=== PATIENT | female | born 1995 | race Caucasian/White ===

== ENCOUNTER 2022-03-26 18:04 | Inpatient (IN) | payer MEDICAID, OTHER ==
[~2022-03-26] VITALS: Ht 170.2 cm; Wt 68.5 kg
[~2022-03-26 18:04] MED LIST: NO MEDS
[2022-03-26] MEDS ORDERED: HYDR-3831 PO (19:05)
[2022-03-26] MEDS ORDERED: TRAZ-252 PO (19:05)
[2022-03-26] MEDS ORDERED: BUSP10TA23 PO (19:05)
[2022-03-26 19:17] LABS: BASOPHILS % (AUTO) 0.6 % (0.0-2.0); EOSINOPHILS % (AUTO) 0.2 % (1.0-6.0); HEMATOCRIT 40.5 % (36-46); HEMOGLOBIN 13.6 g/dL (12.0-16.0); LYMPHOCYTES # (AUTO) 1.7 K/uL (1.0-4.8); LYMPHOCYTES % (AUTO) 25.2 % (22.0-44.0); MEAN CORPUSCULAR HEMOGLOBIN 29.5 pg (26.0-34.0); MEAN CORPUSCULAR HGB CONC 33.5 G/dL (31.0-37.0); MEAN CORPUSCULAR VOLUME 88 fL (80-100); MONOCYTES # (AUTO) 0.3 K/uL (0.1-1.0); MONOCYTES % (AUTO) 4.6 % (2.0-9.0); NEUTROPHILS # (AUTO) 4.6 K/uL (1.8-7.7); NEUTROPHILS % (AUTO) 69.4 % (40.0-70.0); PLATELET COUNT (AUTO) 188 K/uL (150-450); RED CELL DISTRIBUTION WIDTH 12.2 % (11.5-14.5)
[2022-03-26 19:33] LABS: ANION GAP 9 mmol/L (8-16); CALCIUM, TOTAL 9.8 mg/dL (8.8-10.5); CARBON DIOXIDE 30 mmol/L (22-29); CHLORIDE 105 mmol/L (98-107); GLOMERULAR FILTR. RATE CALC > 60 mL/min (>60); GLUCOSE,RANDOM 95 mg/dL (70-110); SODIUM SERUM 144 mmol/L (136-145); UREA NITROGEN, BLOOD 8 mg/dL (7-18)
[2022-03-26 19:38] LABS: ALANINE AMINOTRANSFERASE 17 U/L (12-78); ALBUMIN 4.5 g/dL (3.4-5.0); ALKALINE PHOSPHATASE 56 U/L (46-116); ASPARTATE AMINOTRANSFERASE 15 U/L (15-37); BILIRUBIN,TOTAL 0.3 mg/dL (0.1-1.0); TOTAL PROTEIN, SERUM 8.1 g/dL (6.4-8.2)
[2022-03-26 21:07] LABS: COVID AG,FIA SOURCE NASAL SWAB
[2022-03-26 21:19] LABS: AMPHET/METH SCREEN,URINE NEGATIVE (NEGATIVE); BARBITURATE SCREEN, URINE NEGATIVE (NEGATIVE); BENZODIAZEPINES SCREEN,URINE NEGATIVE (NEGATIVE); CANNABINOID SCREEN,URINE POSITIVE (NEGATIVE); COCAINE SCREEN,URINE NEGATIVE (NEGATIVE); METHADONE SCREEN, URINE NEGATIVE (NEGATIVE); OPIATE SCREEN,URINE NEGATIVE (NEGATIVE); PHENCYCLIDINE SCREEN,URINE NEGATIVE (NEGATIVE)
[2022-03-26] MEDS ORDERED: LORazepam 1 MG TABLET PO ONE (22:30)
[2022-03-26] MEDS ORDERED: LORazepam 2 MG TABLET PO PRN (22:30)
[2022-03-26] MEDS ORDERED: HALOPERIDOL 5 MG TABLET PO PRN (22:30)
[2022-03-26] MEDS ORDERED: ZOLPIDEM TARTRATE 10 MG TABLET PO PRN (22:30)
[2022-03-26 22:34] LABS: APPEARANCE,URINE CLEAR (CLEAR); BILIRUBIN,URINE NEGATIVE (NEGATIVE); GLUCOSE, URINE (UA) NEGATIVE (NEGATIVE); KETONES,URINE NEGATIVE (NEGATIVE); LEUKOCYTE ESTERASE ,URINE MODERATE (NEGATIVE); NITRATE,URINE NEGATIVE (NEGATIVE); OCCULT BLOOD,URINE LARGE (NEGATIVE); PH,URINE 6.5 (5.0-8.0); PROTEIN,URINE NEGATIVE (NEGATIVE); SPECIFIC GRAVITIY, URINE 1.009 (1.003-1.030); UROBILINOGEN,URINE <=1.0 mg/dL (<=1.0)
[2022-03-26 22:47] LABS: RBC,URINE 26-50 /HPF (0-2)
[2022-03-26 22:48] LABS: BACTERIA,URINE None Seen /HPF (None Seen); SQUAMOUS EPITHELIAL CELL,UR Few /LPF (None Seen)
[2022-03-27 02:18] VITALS: BP 116/71
[2022-03-27] MEDS ORDERED: INFLUENZA VIRUS VACCINE QVS 2022-23 (6MO+)/PF 60 MCG/0.5 ML SYRINGE IM. ONE (06:00)
[2022-03-27] MEDS ORDERED: MAG HYDROX/AL HYDROX/SIMETH ES 30 ML SUSPENSION UDCUP PO PRN (07:15)
[2022-03-27] MEDS ORDERED: PETROLATUM,WHITE 28 GM JELLY TP PRN (07:15)
[2022-03-27] MEDS ORDERED: DOCUSATE SODIUM 100 MG CAPSULE PO PRN (07:15)
[2022-03-27] MEDS ORDERED: ONDANSETRON HCL 4 MG TABLET PO PRN (07:15)
[2022-03-27] MEDS ORDERED: GuaiFENesin/D-METHORPHAN [SUGAR-FREE] 200-20MG/10 ML SYRUP UDCUP PO PRN (07:15)
[2022-03-27] MEDS ORDERED: MAGNESIUM HYDROXIDE SUSPENSION 30 ML UDCUP PO PRN (07:15)
[2022-03-27] MEDS ORDERED: CloNIDine HCL 0.1 MG TABLET PO PRN (07:15)
[2022-03-27] MEDS ORDERED: NICOTINE 14 MG/24 HOUR PATCH TD PRN (07:15)
[2022-03-27] MEDS ORDERED: ACETAMINOPHEN 325 MG TABLET PO PRN (07:15)
[2022-03-27] MEDS ORDERED: LOPERAMIDE HCL 2 MG CAPSULE PO PRN (07:15)
[2022-03-27] MEDS ORDERED: IBUPROFEN 400 MG TABLET PO PRN (07:15)
[2022-03-27] MEDS ORDERED: ALBUTEROL SULFATE HFA 90 MCG/PUFF 8 GM INHALER IH PRN (07:15)
[2022-03-27 08:30] VITALS: BP 103/60
[2022-03-27] MEDS ORDERED: QUET25TA36 PO (15:06)
[2022-03-27] MEDS ORDERED: DULO-114 PO (15:06)
[2022-03-27] MEDS: BusPIRone HCL 10 MG TABLET PO SCH (18:42)
[2022-03-27] MEDS: QUEtiapine FUMARATE 25 MG TABLET PO SCH (21:00)
[2022-03-27] MEDS: TraZODone HCL 50 MG TABLET PO SCH (21:00)
[2022-03-28] MEDS: BusPIRone HCL 10 MG TABLET PO SCH ×2 (08:06→16:54)
[2022-03-28] MEDS ORDERED: DULoxetine HCL 30 MG CAPSULE PO SCH (09:00)
[2022-03-28 09:18] VITALS: BP 110/70
[2022-03-28 16:11] VITALS: BP 112/68
[2022-03-28] MEDS: TraZODone HCL 50 MG TABLET PO SCH (20:28)
[2022-03-28] MEDS: QUEtiapine FUMARATE 25 MG TABLET PO SCH (20:28)
[2022-03-29] MEDS: BusPIRone HCL 10 MG TABLET PO SCH ×2 (08:22→18:28)
[2022-03-29] MEDS: DULoxetine HCL 60 MG CAPSULE PO SCH (08:22)
[2022-03-29 09:00] VITALS: BP 114/75
[2022-03-29 17:00] VITALS: BP_SYST 100; BP_SYST 105; BP_DIAS 57; BP_DIAS 60
[2022-03-29] MEDS: QUEtiapine FUMARATE 25 MG TABLET PO SCH (20:20)
[2022-03-29] MEDS: TraZODone HCL 50 MG TABLET PO SCH (20:20)
[2022-03-29 21:23] VITALS: BP 110/70
[2022-03-30 08:00] VITALS: BP 106/67
[2022-03-30] MEDS: BusPIRone HCL 10 MG TABLET PO SCH ×2 (10:19→16:11)
[2022-03-30] MEDS: DULoxetine HCL 60 MG CAPSULE PO SCH (10:19)
== END 2022-03-30 18:41 | disposition home or self-care (01) | DRG 751 ==
LOC: EMS 18:06 → 3EI 03-27 00:15
PROVIDERS: ADMIT Psychiatry & Neurology Psychiatry; ATTEND Psychiatry & Neurology Psychiatry
DX: F33.2 Major depressive disorder, recurrent severe without psychotic features (principal); R45.851 Suicidal ideations; F41.9 Anxiety disorder, unspecified; G47.00 Insomnia, unspecified; R31.9 Hematuria, unspecified; F12.10 Cannabis abuse, uncomplicated; F10.10 Alcohol abuse, uncomplicated; Z59.00 Homelessness unspecified; Z86.59 Personal history of other mental and behavioral disorders; Z87.891 Personal history of nicotine dependence; Z91.51 Personal history of suicidal behavior; Z91.52 Personal history of nonsuicidal self-harm
CPT/HCPCS: 80053; 81001; 85025; 99285; G0480